=== PATIENT | male | born 1950 | race Caucasian/White ===

== ENCOUNTER → 2019-04-11 | Outpatient (CLI) | payer MEDICARE ==
[~2019-04-11] MED LIST: ASPIRIN EC81 MG PO; LEVOTHYROXINE50 MCG PO; LISINOPRIL-HCT1 EACH PO
--- NOTE | 2019-04-11 11:31 | Diagnostic Imaging Report ---
EXAM: CT Abdomen and Pelvis without contrast INDICATION: Renal calculus. COMPARISON: CT abdomen/pelvis 01/26/2009. TECHNIQUE: Abdomen and pelvis were scanned utilizing a multidetector helical scanner from the lung base to the pubic symphysis without administration of IV contrast. Absence of intravenous contrast decreases sensitivity for detection of focal lesions and vascular pathology. Coronal and sagittal reformations were obtained. Routine protocol was performed. IV CONTRAST: None. ORAL CONTRAST: Water RADIATION DOSE: Total DLP: 360.7 mGy*cm Dose modulation, iterative reconstruction, and/or weight based adjustment of the mA/kV was utilized to reduce the radiation dose to as low as reasonably achievable. COMPLICATIONS: None FINDINGS: LINES and TUBES: None. LOWER THORAX: Small 3 to 4 mm left lower lobe solid pulmonary nodules and calcified granuloma in the lingula are unchanged compared to CT on 01/26/2009. HEPATOBILIARY: No evidence of focal hepatic lesions. No biliary ductal dilation. GALLBLADDER: No radio-opaque stones or sludge. No wall thickening. SPLEEN: Multiple coarse splenic calcifications which may reflect sequela of prior infection or trauma. No splenomegaly. PANCREAS: No evidence of focal masses or ductal dilatation. ADRENALS: No adrenal nodules KIDNEYS/URETERS: No hydronephrosis. No evidence of mass. No stones. GI TRACT: There is a partially air-filled gastric diverticulum arising from the greater curvature of the stomach, measuring up to 3.7 x 3.5 cm. No abnormal distention, wall thickening, or evidence of bowel obstruction. Appendix is normal. PELVIC ORGANS/BLADDER: Unremarkable. LYMPH NODES: No lymphadenopathy. Nonspecific mildly prominent retroperitoneal lymph nodes, for example a periaortic lymph node measuring up to 9 mm short axis on series 3, image 50, previously [address] from 01/26/2009. VESSELS: There is moderate atherosclerotic disease in the aorta and major arterial branches. PERITONEUM / RETROPERITONEUM: No free air or fluid. BONES: Age indeterminate mild anterior wedge compression deformity of L2, new since prior CT on 01/26/2009. Degenerative changes of the lumbar spine. SOFT TISSUES: Unremarkable. IMPRESSION: No evidence of renal stone. Signed by: Dr. Rashmi Radford MD on 04/11/2019 11:27 AM
== END ==
LOC: CT 10:29
PROVIDERS: ATTEND Urology
DX: N20.1 Calculus of ureter (principal)
CPT/HCPCS: 74176

== ENCOUNTER → 2021-08-31 | Outpatient (CLI) | payer MEDICARE | LOC: US 09:29 | PROVIDERS: ATTEND Urology | DX: N20.0 Calculus of kidney (principal) | CPT/HCPCS: 74018; 76770 ==

== ENCOUNTER → 2022-07-27 | Outpatient (CLI) | payer MEDICARE | LOC: RAD 09:53 | PROVIDERS: ATTEND Urology | DX: N20.0 Calculus of kidney (principal) | CPT/HCPCS: 74018 ==

== ENCOUNTER 2023-04-05 07:25 | Inpatient (IN) | payer MEDICARE ==
[~2023-04-05] VITALS: Ht 167.6 cm; Wt 74.8 kg
[2023-04-05] VITALS (18 sets, daily range): BP systolic 115–149; BP diastolic 76–118; PULSE 57–106; RESP 15–32; TEMP 97.3–97.9; O2SAT 86–97
[2023-04-05] MEDS ORDERED: DILTIAZEM HCL 5 MG/ML 5 ML VIAL IV STA ×2 (07:42→08:42)
[2023-04-05] MEDS ORDERED: METOPROLOL TARTRATE INJ 1 MG/ML VIAL IV ONE (08:00)
[2023-04-05 08:04] LABS: BASOPHILS % 0.5 % (0.0-1.0); EOSINOPHILS # (AUTO) 0.1 (0.0-0.4); EOSINOPHILS % 1.5 % (0.0-6.0); HEMATOCRIT 47.4 % (38.2-49.6); HEMOGLOBIN 15.8 g/dL (14.0-18.0); LYMPHOCYTES # (AUTO) 0.7 (1.0-3.2); LYMPHOCYTES % 7.9 % (18.0-39.1); MEAN CORPUSCULAR HEMOGLOBIN 31.8 pg (28-32); MEAN CORPUSCULAR HGB CONC 33.3 g/dL (31-35); MEAN CORPUSCULAR VOLUME 95.4 fL (81-99); MONOCYTES # (AUTO) 0.9 (0.2-0.8); MONOCYTES % 10.4 % (4.4-11.3); NEUTROPHILS # (AUTO) 6.6 (2.1-6.9); NEUTROPHILS % 79.6 % (38.7-80.0); PLATELET COUNT 179 x10e3/uL (140-360); RED BLOOD COUNT 4.97 x10e6/uL (4.3-5.7); RED CELL DISTRIBUTION WIDTH 13.6 % (11.7-14.4)
[2023-04-05] MEDS ORDERED: METOPROLOL SUCC50 MG PO (08:08)
[2023-04-05] MEDS ORDERED: FLOMAX0.4 MG PO (08:08)
[2023-04-05] MEDS ORDERED: ATORVASTATIN CA10 MG PO (08:08)
[2023-04-05] MEDS ORDERED: LOSARTAN POTASS25 MG PO (08:08)
[2023-04-05 08:20] LABS: ALANINE AMINOTRANSFERASE 78 IU/L (0-55); ALBUMIN/GLOBULIN RATIO 1.2 (0.8-2.0); ALKALINE PHOSPHATASE 89 IU/L (40-150); ANION GAP 16.1 mmol/L (8-16); BLOOD UREA NITROGEN 18 mg/dL (7-26); BUN/CREATININE RATIO 21 (6-25); CALCIUM 9.2 mg/dL (8.4-10.2); CARBON DIOXIDE 22 mmol/L (22-29); CHLORIDE 109 mmol/L (98-107); CREATINE KINASE 110 IU/L (30-200); CREATININE, SERUM 0.86 mg/dL (0.72-1.25); GLUCOSE 128 mg/dL (74-118); POTASSIUM 4.1 mmol/L (3.5-5.1); SODIUM 143 mmol/L (136-145)
[2023-04-05 08:22] LABS: INR 0.96; PROTHROMBIN TIME 13.3 seconds (11.9-14.5)
[2023-04-05 08:23] LABS: PARTIAL THROMBOPLASTIN TIME 30.3 seconds (23.8-35.5)
[2023-04-05] MEDS ORDERED: DILTIAZEM HCL 60 MG TAB PO ONE (08:45)
[2023-04-05] MEDS ORDERED: DILTIAZEM HCL 30 MG TAB ONE (08:54)
[2023-04-05] MEDS ORDERED: DILTIAZEM HCL 30 MG TAB PO ONE ×2 (09:00)
[2023-04-05] MEDS: ENOXAPARIN INJ 80 MG/0.8 ML SYR SC SCH ×2 (09:14→20:58)
[2023-04-05] MEDS ORDERED: ONDANSETRON HCL INJ 2MG/ML 2ML 2 MG/ML VIAL IV PRN (09:30)
[2023-04-05] MEDS ORDERED: FUROSEMIDE INJ 10 MG/ML 2 ML VIAL IV ONE (09:30)
[2023-04-05] MEDS ORDERED: AMIODARONE HCL 150 MG/100 ML BAG IV ONE (10:15)
[2023-04-05] MEDS ORDERED: AMIODARONE 900MG 500 ML IV SCH (10:15)
[2023-04-05] MEDS ORDERED: COQ-10100 MG PO (11:46)
[2023-04-05] MEDS ORDERED: PRAVASTATIN SOD40 MG PO (11:46)
[2023-04-05] MEDS: METOPROLOL TARTRATE 25 MG TAB PO SCH (18:11)
[2023-04-06] VITALS (11 sets, daily range): BP systolic 130–148; BP diastolic 90–121; PULSE 40–118; RESP 0–26; TEMP 97.3–98.3; O2SAT 93–98
[2023-04-06 04:55] LABS: BASOPHILS % 0.6 % (0.0-1.0); EOSINOPHILS # (AUTO) 0.2 (0.0-0.4); EOSINOPHILS % 2.2 % (0.0-6.0); HEMATOCRIT 41.5 % (38.2-49.6); HEMOGLOBIN 13.8 g/dL (14.0-18.0); LYMPHOCYTES # (AUTO) 0.8 (1.0-3.2); LYMPHOCYTES % 10.5 % (18.0-39.1); MEAN CORPUSCULAR HEMOGLOBIN 31.5 pg (28-32); MEAN CORPUSCULAR HGB CONC 33.3 g/dL (31-35); MEAN CORPUSCULAR VOLUME 94.7 fL (81-99); MONOCYTES # (AUTO) 0.7 (0.2-0.8); MONOCYTES % 9.9 % (4.4-11.3); NEUTROPHILS # (AUTO) 5.6 (2.1-6.9); NEUTROPHILS % 76.5 % (38.7-80.0); PLATELET COUNT 157 x10e3/uL (140-360); RED BLOOD COUNT 4.38 x10e6/uL (4.3-5.7); RED CELL DISTRIBUTION WIDTH 13.3 % (11.7-14.4)
[2023-04-06 05:20] LABS: ALBUMIN 3.2 g/dL (3.5-5.0); ALBUMIN/GLOBULIN RATIO 1.1 (0.8-2.0); ANION GAP 12.8 mmol/L (8-16); CALCIUM 8.6 mg/dL (8.4-10.2); CHOL/HDL RATIO 2.7 (3.9-4.7); CREATININE, SERUM 0.88 mg/dL (0.72-1.25); POTASSIUM 3.8 mmol/L (3.5-5.1)
[2023-04-06] MEDS: METOPROLOL TARTRATE 25 MG TAB PO SCH ×2 (06:34→16:34)
[2023-04-06] MEDS: APIXABAN 5 MG TABLET PO SCH ×2 (08:31→16:34)
[2023-04-06] MEDS: AMIODARONE HCL 200 MG TAB PO SCH (08:31)
[2023-04-06] MEDS ORDERED: POTASSIUM CHLORIDE 10MEQ EA PO ONE (09:15)
[2023-04-06] MEDS ORDERED: FUROSEMIDE INJ 10 MG/ML 2 ML VIAL IV ONE (10:00)
[2023-04-07] VITALS (11 sets, daily range): BP systolic 119–170; BP diastolic 68–115; PULSE 76–99; RESP 18–24; TEMP 97.1–98.1; O2SAT 95–98
[2023-04-07] MEDS: METOPROLOL TARTRATE 25 MG TAB PO SCH ×2 (04:50→18:10)
[2023-04-07 06:24] LABS: ANION GAP 12.9 mmol/L (8-16); CALCIUM 8.6 mg/dL (8.4-10.2); CREATININE, SERUM 0.92 mg/dL (0.72-1.25); POTASSIUM 3.9 mmol/L (3.5-5.1)
[2023-04-07] MEDS ORDERED: HYDRALAZINE HCL 20 MG/ML VIAL IV PRN (07:45)
[2023-04-07] MEDS: APIXABAN 5 MG TABLET PO SCH ×2 (08:08→18:10)
[2023-04-07] MEDS: AMIODARONE HCL 200 MG TAB PO SCH (08:08)
[2023-04-07] MEDS: LOSARTAN POTASSIUM 100 MG TAB PO SCH (08:11)
[2023-04-07] MEDS ORDERED: FUROSEMIDE INJ 10 MG/ML 2 ML VIAL IV SCH (09:00)
[2023-04-07] MEDS ORDERED: POTASSIUM CHLORIDE 10MEQ EA PO SCH (09:00)
[2023-04-07] MEDS ORDERED: ONDANSETRON HCL 4 MG ORAL DISINTEGRATING TAB PO PRN (14:30)
[2023-04-08] VITALS (11 sets, daily range): BP systolic 120–160; BP diastolic 81–101; PULSE 58–103; RESP 18–20; TEMP 97–98.4; O2SAT 19–100
[2023-04-08] MEDS ORDERED: Morphine 2mg Syringe 2 MG/ML SYR IV PRN (04:30)
[2023-04-08] MEDS: METOPROLOL TARTRATE 25 MG TAB PO SCH ×2 (05:31→16:36)
[2023-04-08] MEDS: AMIODARONE HCL 200 MG TAB PO SCH (09:17)
[2023-04-08] MEDS: FUROSEMIDE INJ 10 MG/ML 4 ML VIAL IV SCH (09:17)
[2023-04-08] MEDS: POTASSIUM CHLORIDE 10MEQ EA PO SCH (09:17)
[2023-04-08] MEDS: APIXABAN 5 MG TABLET PO SCH ×2 (09:18→16:35)
[2023-04-08] MEDS: LOSARTAN POTASSIUM 100 MG TAB PO SCH (09:18)
[2023-04-09] VITALS (11 sets, daily range): BP systolic 123–158; BP diastolic 87–110; PULSE 70–118; RESP 17–22; TEMP 97.5–98.4; O2SAT 96–100
[2023-04-09] MEDS: METOPROLOL TARTRATE 25 MG TAB PO SCH ×2 (05:29→16:31)
[2023-04-09] MEDS: APIXABAN 5 MG TABLET PO SCH ×2 (08:13→16:30)
[2023-04-09] MEDS: LOSARTAN POTASSIUM 100 MG TAB PO SCH (08:14)
[2023-04-09] MEDS: FUROSEMIDE INJ 10 MG/ML 4 ML VIAL IV SCH (08:14)
[2023-04-09] MEDS: POTASSIUM CHLORIDE 10MEQ EA PO SCH (08:14)
[2023-04-09] MEDS: AMIODARONE HCL 200 MG TAB PO SCH (08:14)
[2023-04-10] VITALS: BP_SYST 127; BP_SYST 150; BP_DIAS 87; BP_DIAS 94; PULSE 79; PULSE 87; RESP 20; TEMP 97.8; TEMP 98; O2SAT 100; O2SAT 98
[2023-04-10] MEDS: METOPROLOL TARTRATE 25 MG TAB PO SCH (05:51)
[2023-04-10 07:00] VITALS: PULSE 82; RESP 20; O2SAT 97
[2023-04-10 08:00] VITALS: BP 133/92; PULSE 83; RESP 22; TEMP 97.7; O2SAT 99
[2023-04-10 08:42] VITALS: BP 133/92; PULSE 83; RESP 22; TEMP 97.3; O2SAT 97
[2023-04-10] MEDS: POTASSIUM CHLORIDE 10MEQ EA PO SCH (09:20)
[2023-04-10] MEDS: FUROSEMIDE INJ 10 MG/ML 4 ML VIAL IV SCH (09:21)
[2023-04-10] MEDS: AMIODARONE HCL 200 MG TAB PO SCH (09:21)
[2023-04-10] MEDS: APIXABAN 5 MG TABLET PO SCH (09:21)
[2023-04-10] MEDS: LOSARTAN POTASSIUM 100 MG TAB PO SCH (09:21)
[2023-04-10] MEDS ORDERED: LASIX10 MG/ML PO (11:27)
[2023-04-10] MEDS ORDERED: KLOR-CON M2020 MEQ PO (11:28)
[2023-04-10] MEDS ORDERED: ELIQUIS5 MG PO (11:28)
[2023-04-10] MEDS ORDERED: AMIODARONE HCL200 MG PO (11:28)
[2023-04-10] MEDS ORDERED: LASIX40 MG PO (11:29)
[2023-04-10 11:49] VITALS: BP 111/65; PULSE 56; RESP 20; TEMP 97; O2SAT 100
== END 2023-04-10 12:02 | disposition home or self-care (01) | DRG 291 ==
LOC: ER 07:30 → ERHOLD 09:23 → ICU 11:30 → MED/SURG 04-06 14:40 → MED/SURG3 04-06 17:15
PROVIDERS: ADMIT Internal Medicine; ATTEND Internal Medicine
DX: I11.0 Hypertensive heart disease with heart failure (principal); I50.21 Acute systolic (congestive) heart failure; I48.20 Chronic atrial fibrillation, unspecified; E66.01 Morbid (severe) obesity due to excess calories; I16.0 Hypertensive urgency; R09.02 Hypoxemia; N40.0 Benign prostatic hyperplasia without lower urinary tract symptoms; E78.5 Hyperlipidemia, unspecified; E03.9 Hypothyroidism, unspecified; Z99.81 Dependence on supplemental oxygen; Z79.890 Hormone replacement therapy; Z82.49 Family history of ischemic heart disease and other diseases of the circulatory system; Z20.822 Contact with and (suspected) exposure to COVID-19
CPT/HCPCS: 0223U; 36415; 70450; 71045; 80048; 80053; 80061; 82550; 83735; 83880; 84443; 84484; 85025; 85610; 85730; 93005; 93306; 94799; 96360; 99285; J1650; J1940